=== PATIENT | female | born 1970 | race Caucasian/White ===

== ENCOUNTER 2024-03-13 18:22 | Outpatient (CLI) | payer MEDICARE, SELFPAY | END 2024-03-13 18:23 | disposition home or self-care (01) | LOC: AMB 03-25 02:15 | PROVIDERS: Visit Provider Family Medicine | DX: R45.851 Suicidal ideations (principal) | CPT/HCPCS: A0425; A0429 ==

== ENCOUNTER 2024-03-13 18:58 | Emergency (ER) | payer MEDICARE, SELFPAY ==
[2024-03-13] VITALS (10 sets, daily range): BP systolic 95–106; BP diastolic 63–76; PULSE 61–71; RESP 16; TEMP 36.4; O2SAT 96–100; BMI 21.3
--- NOTE | 2024-03-13 19:07 | ED.GENADULT ---
HPI - General Adult General Date Seen: 03/13/24 Chief complaint: Overdose Stated complaint: OD Time Seen by Provider: 03/13/24 19:06 History of Present Illness HPI narrative: 53-year-old female brought to the ER today by EMS for evaluation of slurred speech, altered mental status, after an intentional overdose of lorazepam and a suicide attempt. She is on a hold placed by EMS. History from paramedics is that she is 53. She has chronic depression. She had no reason to live today and so took 28 tablets of 1 mg lorazepam around 11:00 a.m.. She has not had anything to eat or drink since then and has not had any vomiting. Apparently her son called her and found her to be abnormal and her son called 911. EN route the patient had a low normal blood pressure in the 90s/50s. Normal pulse rate. Normal oxygen treated she was initially quite drowsy but is becoming more arousable as they were transporting her. They placed her on a hold. They attempted to start an IV in her left arm but were unsuccessful. History is limited from the patient because she has altered mental status, drowsiness, and slurred speech. She is able to tell me that she does have depression. She apparently has doctors either at [facility] in [facility] or at [place] to manage her depression. She also has a ?spinal cord transplant? which I think may actually mean a spine stimulator. She was apparently referred for ECT to treat her depression but could not have it because of her his spine. She says she just had nothing to live for. She is lonely even though she has a nice house in [place]. She took her lorazepam in an attempt to today. She denies any other coingestion. No previous medical records available in our system Records are available through [facility] and [facility] Past medical history includes Deviated septum, rectovaginal fistula, history of malignant melanoma of her face, osteoarthritis of her thumb, migraine headaches, abnormal Pap smear, Anxiety, PTSD, tobacco use, major depressive disorder Records indicate that she was admitted from 03/03-03/08 at [facility] She was admitted for major depressive disorder, generalized anxiety disorder. Per DC Summary 03/08 Mahogany has a history of depression and anxiety. She was admitted to [facility] a couple of weeks ago. She was later transferred to [facility] to start ECTs because of severe depression. Prior to her transfer, she was placed on [facility] by Dr. Sims. Patient could not receive the ECTs because of having spine stimulator. She found this to be contraindication. Patient was transferred back to [place] yesterday without having any ECTs at [facility]. She continues to endorse symptoms of depression as feeling sad, trouble enjoying things and motivating self, appetite changes, sleeping problems, feeling tired, and trouble concentrating/memory. Feeling hopeless/helpless/worthless/guilty. She also continues to have suicidal thoughts but without any intentions or plans. She reports some anxiety symptoms as well. She worries but denies any panic like symptoms. She denies any flashbacks, nightmares, hypervigilance, avoidance related to the past. She denies symptoms including decreased need for sleep with elevated mood and energy. Denies doing things impulsively or engaging in behaviors out of the norm such as gambling/ excessive shopping, having racing thoughts, feeling ?hyper?. She denies symptoms of auditory or visual hallucinations. Does not endorse bizarre/persistent thoughts/fears that are affecting daily life such as paranoia or delusions. ? BRIEF HOSPITAL COURSE: This 53 y.o. female admitted 03/03/2024 To [place] for the assessment and treatment of the above presentation. This was a voluntary admission. On admission, Amber stated in individual, group and milieu therapy. ? 1. Major depression, recurrent, severe, without psychosis: The patient was continued with tranylcypromine and the dosage was eventually increased to 20 mg twice daily. She noted that on the higher doses that her mood had improved. She was not experiencing any hypotension. The second dosage of the day was being given at bedtime and she was having some difficulty with sleep. For that reason the second dose was moved to late afternoon. She was able to manage anxiety with quetiapine 25 mg every 6 hours as needed for anxiety. In order to deal with her insomnia she was advised to use quetiapine 25 to 50 mg at bedtime in addition to 1 mg of lorazepam at bedtime for insomnia. ? On the day of discharge the patient had requested to be discharged. She stated that she was feeling better and that she was having thoughts but was not having feelings of hopelessness nor was she having suicidal ideation. With Mahogany springer this press writer contacted her son Zach, by phone. He stated that he noted that over the last several days she was sounding much better and was comfortable with her returning home. This press writer advised the patient to avoid isolation as much as possible and to make sure that she has a routine scheduled if possible. She stated that she is scheduled to begin DBT and also has an appointment to become reestablished with [facility]. ? In summary, the patient's psychiatric history is significant for recurrent major depression. Over the course of the hospitalization the following changes to medications were made: She was continued on tranylcypromine but the dosage was eventually increased to 20 mg twice daily. She was also using lorazepam 1 mg at bedtime as needed for insomnia and quetiapine 25 mg 3 times daily as needed and 25 to 50 mg at bedtime as needed for insomnia. The patient tolerated these changes without side effects. The patient benefited from the structured therapeutic milieu and attended programming. While in the hospital lab work showed a white count low at 4.1, albumin low at 3.9, total bilirubin 0.2 ALT less than 5, AST 11, hemoglobin 12.5 Drug screen positive for benzos, otherwise negative. Related Data Home Medications Medication Instructions Recorded Confirmed naltrexone 1.5 mg capsule 3 mg PO 03/13/24 (Lotrexone) quetiapine 25 mg tablet 25 mg PO DAILY 03/13/24 03/13/24 tranylcypromine 10 mg tablet 10 mg PO DAILY 03/13/24 03/13/24 tryptophan .ROUTE 03/13/24 Allergies Allergy/AdvReac Type Severity Reaction Status Date / Time No Known Drug Allergies Allergy Verified 03/13/24 19:17 Exam Narrative: Exam Narrative: Primary Survey: A- patent. Speaking slowly and speech is slurred. Phonation normal. No stridor. Protecting her airway B- breathing easily. Lung sounds clear and equal. Oxygen saturation normal on room air C- no active bleeding. Blood pressure measures low but may be inaccurate. Will recheck. Symmetric pulses and cap refill in 4 extremities. D- alert and oriented to person and place but not date. Slurred speech. GCS 15. No focal deficits. Constitutional: Appears well-developed and well-nourished. Drowsy and speech is slurred. Able to answer some questions. Somewhat disorganized historian, talking about having headache ?spine transplant? when she means that she has a spine stimulator HENT: Head: Atraumatic. No depressed skull fracture, Raccoon Eyes, Pepe's sign, or hemotympanum. Face normal. Nose: Nose normal. Mouth/Throat: Oral mucosa is clear and moist. no trismus. Pharynx normal. Tonsils symmetric. No tonsillar enlargement, erythema, or exudate. Eyes: Conjunctivae normal. EOM normal. Pupils equal, round, and reactive to light. No scleral icterus. Neck: Normal range of motion. Neck supple. No tracheal deviation present. Cardiovascular: Normal rate, regular rhythm. No gallop. No friction rub. No murmur heard. Symmetric radial artery pulses Pulmonary/Chest: Effort normal. No stridor. No respiratory distress. No wheezes. No rales. No rhonchi . No tenderness. Abdominal: Soft. Bowel sounds normal. No distension. No mass. No tenderness. No rebound. No guarding. Musculoskeletal: Palpable spine stimulator in her right flank. No overlying redness or rash. No bruising. RUE: Normal range of motion. No tenderness. No deformity LUE: Normal range of motion. No tenderness. No deformity RLE: Normal range of motion. No edema. No tenderness. No deformity LLE: Normal range of motion. No edema. No tenderness. No deformity Lymph: No cervical adenopathy. Neurological: Awake but drowsy. oriented to person, place, but not date. Normal strength. CN II-VII intact. No sensory deficit. GCS eye subscore is 4. GCS verbal subscore is 5. GCS motor subscore is 6. Somewhat slow moving, consistent with possible intoxication. Otherwise no focal deficits Skin: Skin is warm and dry. No rash noted. No pallor. Normal capillary refill. Psychiatric: Drowsy. Flat affect. Appears disheveled. Endorses that she has no reason to live. She did take a reported 28 mg of Ativan around 11:00 a.m. as a suicide attempt. Records indicate she was just hospitalized for depression at [facility]. Const: Vital Signs, click to edit/add: Vital Signs - 24 hr 03/13/24 19:17 Temperature 97.6 F Pulse Rate [Pulse Oximeter] 71 Respiratory Rate 16 Blood Pressure [Le ft Upper Arm] 95/67 Pulse Oximetry 97 Oxygen Delivery Me thod Room Air Course Course ED Course: Recheck-8:00 p.m.. Sitting up in bed. Able to be more conversant. Cooperative with exam. Lies back for heart and abdominal exam and rolls over onto her side for back exam. Still drowsy and slurred speech but overall seems more alert now than when she arrived. Vital Signs Vital signs: Initial Vital Signs Temperature 97.6 F 03/13/24 19:17 Temperature Source Temporal Artery Scan 03/13/24 19:17 Pulse Rate 71 03/13/24 19:17 Respiratory Rate 16 03/13/24 19:17 Blood Pressure 95/67 03/13/24 19:17 Blood Pressure Mean 76 03/13/24 19:17 Blood Pressure Position Sitting 03/13/24 19:17 Pulse Oximetry 97 03/13/24 19:17 Oxygen Delivery Method Room Air 03/13/24 19:17 Vital Signs Temperature 97.6 F 03/13/24 19:17 Pulse Rate 71 03/13/24 19:17 Respiratory Rate 16 03/13/24 19:17 Blood Pressure 95/67 03/13/24 19:17 Pulse Oximetry 97 03/13/24 19:17 Oxygen Delivery Method Room Air 03/13/24 19:17 Temperature 97.6 F 03/13/24 19:17 Pulse Rate 71 03/13/24 19:17 Respiratory Rate 16 03/13/24 19:17 Blood Pressure 95/67 03/13/24 19:17 Pulse Oximetry 97 03/13/24 19:17 Oxygen Delivery Method Room Air 03/13/24 19:17 Medical Decision Making MDM Narrative Medical decision making narrative: 53-year-old female with a history of depression, anxiety, chronic pain, spinal stimulator, presenting to the ER today by EMS from her home. She had an intentional overdose on lorazepam reported to be around 11:00 a.m. this morning. She denies any other coingestion. However further laboratory workup was undertaking because patient's reliability cannot be assured. She was endorsing that she had no reason to live and this clearly was an attempt at self harm/suicide. She was initially quite drowsy. She was not combative but she did not want to come with paramedics so she was placed on a transport hold. We did continue a 72 hour hold, initiated after she arrived here in the ER and I evaluated her. However at this time she is actually voluntary and willing to be here/willing to be hospitalized. She is cooperative but drowsy. Initial evaluation revealed drowsiness, slurred speech and signs of either alcohol or sedative intoxication. Head CT is negative for bleed. Blood glucose is normal. She is not febrile and no headache. White blood cell count is normal today at 6.9 and venous lactic acid is normal. No evidence for any meningitis or encephalitis based on initial presentation. Alcohol level is undetectable. Urine drug screen is positive for benzos and tricyclics. Otherwise negative. Acetaminophen and salicylate level are both undetectable. Initial blood pressure was measured low but I think this was probably an inaccurate reading because it was measured through her heavy sweatshirt. Subsequent readings have remained in the low normal range. We have administered 1 L of IV saline here in the ER. At this point she is not requiring vasopressors. EKG shows normal QRS morphology. No evidence for QRS widening sit to suggest TCA overdose, although drug screen is positive for TCAs. Med [place] [facility] [place] [facility] [place] Mental status was drowsy but she was alert and talking and protecting her airway. Discussed by phone with her son Zach. [phone]. He confirms that she has had a long stroke mental health and was just in the hospital and discharged last week. She has tried to commit suicide by overdose in the past. He has great concerns about her and wonders if she needs to be committed or in a long-term living facility. He agrees with the plan to have her evaluated by DEC and then admitted for inpatient mental health treatment. Patient signed out to my partner, Dr. Hart. He will monitor the patient's clinical course. Once she is clinically sober enough she will need assessment by DEC. I have placed her on a 72 hour hold tonight. I am anticipating that she will require an inpatient mental health admission because of her depression and suicide attempt. Lab Data Labs: Lab Results 03/13/24 03/13/24 03/13/24 Range/Units 19:13 19:13 19:13 WBC 6.92 (4.50-11.00) K/uL RBC 4.74 (4.00-5.20) m/uL Hgb 14.1 (12.0-16.0) gm/dL Hct 42.5 (33.0-51.0) % MCV 90 (80-100) fL MCH 30 (26-34) pg MCHC 33 (32-36) gm/dL RDW Coeff of Elisa 12.5 (11.5-15.5) % Plt Count 272 (140-440) K/uL Neut % (Auto) 43.3 (42.0-72.0) % Lymph % (Auto) 45.8 H (20-44) % Ellis % (Auto) 8.5 (0.0-11.0) % Eos % (Auto) 1.7 (0.0-7.0) % Baso % (Auto) 0.4 (0.0-3.0) % Neut # (Auto) 2.99 (1.7-7.0) K/uL Lymph # (Auto) 3.20 H (0.90-2.90) K/uL Ellis # (Auto) 0.60 (0.00-0.90) K/UL Eos # (Auto) 0.12 (0.00-0.50) K/uL Baso # (Auto) 0.03 (0.00-0.30) K/uL Abs Immat Gran (auto) 0.02 (0.00-0.30) K/uL Imm/Tot Granulo (auto) 0.3 % Sodium 138 (135-149) mmol/L Potassium 3.7 (3.6-5.1) mmol/L Chloride 105 (96-114) mmol/L Carbon Dioxide 26 (20-32) mmol/L Anion Gap 7 (7-15) mEq/L BUN 15 (7-30) mg/dL Creatinine 0.9 (0.5-1.5) mg/dL Estimated Creat Clear 58.42 Estimated GFR 76 ml/min Glucose 78 (60-115) mg/dL Lactate 0.9 (0.5-1.9) mmol/L Calcium 9.6 (8.4-10.6) mg/dL Magnesium 2.2 (1.5-2.6) mg/dL Total Bilirubin 0.6 (0.1-1.5) mg/dL AST 31 (12-35) U/L ALT 22 (4-35) U/L Alkaline Phosphatase 76 (40-150) U/L Total Protein 6.9 (6.0-8.3) g/dL Albumin 4.3 (3.3-5.0) g/dL Salicylates Cancelled < 1.0 L Urine Opiates Screen (Negative) Ur Oxycodone Screen (Negative) Urine Methadone Screen (Negative) Acetaminophen Cancelled < 10.0 L Ur Barbiturates Screen (Negative) U Tricyclic Antidepress (Negative) Ur Phencyclidine Scrn (Negative) Ur Amphetamines Screen (Negative) U Methamphetamines Scrn (Negative) U Benzodiazepines Scrn (Negative) Urine Cocaine Screen (Negative) U Marijuana (THC) Screen (Negative) Ur Drug Screen Comment Ethyl Alcohol < 0.01 L (0.01-0.03) % 03/13/24 Range/Units 19:49 WBC (4.50-11.00) K/uL RBC (4.00-5.20) m/uL Hgb (12.0-16.0) gm/dL Hct (33.0-51.0) % MCV (80-100) fL MCH (26-34) pg MCHC (32-36) gm/dL RDW Coeff of Elisa (11.5-15.5) % Plt Count (140-440) K/uL Neut % (Auto) (42.0-72.0) % Lymph % (Auto) (20-44) % Ellis % (Auto) (0.0-11.0) % Eos % (Auto) (0.0-7.0) % Baso % (Auto) (0.0-3.0) % Neut # (Auto) (1.7-7.0) K/uL Lymph # (Auto) (0.90-2.90) K/uL Ellis # (Auto) (0.00-0.90) K/UL Eos # (Auto) (0.00-0.50) K/uL Baso # (Auto) (0.00-0.30) K/uL Abs Immat Gran (auto) (0.00-0.30) K/uL Imm/Tot Granulo (auto) % Sodium (135-149) mmol/L Potassium (3.6-5.1) mmol/L Chloride (96-114) mmol/L Carbon Dioxide (20-32) mmol/L Anion Gap (7-15) mEq/L BUN (7-30) mg/dL Creatinine (0.5-1.5) mg/dL Estimated Creat Clear Estimated GFR ml/min Glucose (60-115) mg/dL Lactate (0.5-1.9) mmol/L Calcium (8.4-10.6) mg/dL Magnesium (1.5-2.6) mg/dL Total Bilirubin (0.1-1.5) mg/dL AST (12-35) U/L ALT (4-35) U/L Alkaline Phosphatase (40-150) U/L Total Protein (6.0-8.3) g/dL Albumin (3.3-5.0) g/dL Salicylates Urine Opiates Screen Negative (Negative) Ur Oxycodone Screen Negative (Negative) Urine Methadone Screen Negative (Negative) Acetaminophen Ur Barbiturates Screen Negative (Negative) U Tricyclic Antidepress POSITIVE A (Negative) Ur Phencyclidine Scrn Negative (Negative) Ur Amphetamines Screen Negative (Negative) U Methamphetamines Scrn Negative (Negative) U Benzodiazepines Scrn POSITIVE A (Negative) Urine Cocaine Screen Negative (Negative) U Marijuana (THC) Screen Negative (Negative) Ur Drug Screen Comment See Note Ethyl Alcohol (0.01-0.03) % Imaging Data CT scan - head: Attestation: I have reviewed the pertinent imaging results. Radiologist's impression: Impression: No acute intracranial process. ECG Data Attestation: I personally reviewed and interpreted this ECG as follows: Interpretation: Normal sinus rhythm Rate: 61 TX: 138. No delta waves. QRS axis: Normal axis. QRS with 76 milliseconds. No QRS widening ST segment/T wave: No ST segment elevation or depression. QTc: 428. Discharge Plan Discharge Clinical Impression: Drug overdose, Suicide attempt, Benzodiazepine overdose Prescriptions: No Action Lotrexone 1.5 mg capsule 3 mg PO tranylcypromine 10 mg tablet 10 mg PO DAILY quetiapine 25 mg tablet 25 mg PO DAILY tryptophan .ROUTE Follow Up/Referrals: Provider,Not a Local [Primary Care Provider] -
--- NOTE | 2024-03-13 19:10 | CT_ITS ---
Patient: ABDIRAHMAN ALVARENGA Facility:?[facility] Patient ID:?[id number] Site Patient ID:?[id number] Site :?[id number] Study:?CT-Head WITHOUT-03/13/2024 7:28:43 PM Ordering Physician:?DR. LEVI Final Report: Indication: Altered mental status. Technique: CT of the brain was performed without intravenous contrast. Comparison: None relevant available at this institution. Findings: No acute blurring of the chavez-white differentiation. There is no intracranial hemorrhage. The ventricles are proportionate to the cerebral sulci. The 4th ventricle is midline. Basal cisterns appear patent. No abnormal extra-axial fluid collection identified. There is no intracranial mass, mass effect or midline shift identified. No depressed calvarial fracture. Impression: No acute intracranial process. Please note that all CT scans at this facility use dose modulation, iterative reconstruction, and/or weight-based dosing when appropriate to reduce radiation dose to as low as reasonably achievable. Dictated by Edi Hua MD @ 03/13/2024 8:01:09 PM Signed by:?Edi Hua MD @03/13/2024 8:01:09 PM (Electronic Signature)
[2024-03-13 19:18] LABS: Lactate* 0.9 mmol/L (0.5-1.9)
[2024-03-13 19:20] LABS: Basophils Absolute Auto 0.03 K/uL (0.00-0.30); Basophils Percent Auto 0.4 % (0.0-3.0); Eosinophils Absolute Auto 0.12 K/uL (0.00-0.50); Eosinophils Percent Auto 1.7 % (0.0-7.0); Hematocrit 42.5 % (33.0-51.0); Hemoglobin* 14.1 gm/dL (12.0-16.0); Immature Granulocytes Abs Auto 0.02 K/uL (0.00-0.30); Immature Granulocytes Pct Auto 0.3 %; Lymphocytes Percent Auto 45.8 % (20-44); Mean Corpuscular HGB Conc 33 gm/dL (32-36); Mean Corpuscular Hemoglobin 30 pg (26-34); Mean Corpuscular Volume 90 fL (80-100); Monocytes Percent Auto 8.5 % (0.0-11.0); Neutrophils Absolute Auto 2.99 K/uL (1.7-7.0); Neutrophils Percent Auto 43.3 % (42.0-72.0); Platelet Count* 272 K/uL (140-440); RDW Coefficient of Variation % 12.5 % (11.5-15.5); Red Blood Count 4.74 m/uL (4.00-5.20); White Blood Count* 6.92 K/uL (4.50-11.00)
[2024-03-13 19:31] LABS: Slide Review Reflex No
[2024-03-13 19:41] LABS: Albumin* 4.3 g/dL (3.3-5.0); Chloride* 105 mmol/L (96-114)
[2024-03-13 19:42] LABS: Potassium* 3.7 mmol/L (3.6-5.1); Sodium* 138 mmol/L (135-149)
[2024-03-13 19:43] LABS: Creatinine* 0.9 mg/dL (0.5-1.5); Est. Creatinine Clearance* 58.42; Estimated Glomerular Filt Rate 76 ml/min
[2024-03-13 19:44] LABS: Alanine Aminotransferase* 22 U/L (4-35); Alkaline Phosphatase* 76 U/L (40-150); Anion Gap 7 mEq/L (7-15); Aspartate Amino Transferase* 31 U/L (12-35); Bilirubin Total* 0.6 mg/dL (0.1-1.5); Blood Urea Nitrogen* 15 mg/dL (7-30); Calcium* 9.6 mg/dL (8.4-10.6); Carbon Dioxide* 26 mmol/L (20-32); Glucose* 78 mg/dL (60-115); Total Protein* 6.9 g/dL (6.0-8.3)
[2024-03-13 19:45] LABS: Magnesium* 2.2 mg/dL (1.5-2.6)
[2024-03-13 19:50] LABS: Acetaminophen* < 10.0 ug/mL (10.0-30.0); Ethanol* < 0.01 % (0.01-0.03); Salicylate* < 1.0 mg/dL (1.0-10)
[2024-03-13 20:04] LABS: Amphetamine Screen Urine Negative (Negative); Barbiturate Screen Urine Negative (Negative); Benzodiazepines Screen Urine POSITIVE (Negative); Cannabinoid Screen Urine Negative (Negative); Cocaine Screen Urine Negative (Negative); Methadone Screen Urine Negative (Negative); Methamphetamines Screen Urine Negative (Negative); Opiate Screen Urine Negative (Negative); Oxycodone Screen Urine Negative (Negative); Phencyclidine Screen Urine Negative (Negative); Tricyclic Antidepressant Urine POSITIVE (Negative)
[2024-03-14 03:25] LABS: Ur HCG Qualitative* Negative (Negative)
[2024-03-14 09:05] VITALS: BP 90/66; PULSE 80; RESP 18; O2SAT 98
--- NOTE | 2024-03-14 09:43 | ED.NURSE ---
pt's depression medication is unavailable at the hospital. son was called and he is willing to bring it in
[2024-03-14 10:00] LABS: PCR FLU A Negative PCR FLU A (Negative); PCR FLU B Negative PCR FLU B (Negative); PCR RSV Negative PCR RSV (Negative); SARS PCR* Negative SARS-CoV-2 (Negative)
[2024-03-14] MEDS: TRANYLCYPROMINE 10 MG 20 EACH PO (11:00)
--- NOTE | 2024-03-14 11:15 | ED.NURSE ---
Zach banda here. updated of plan for transfer to [facility]
[2024-03-14] MEDS: NICOTINE 2 MG LOZENGE 4 MG BUCCAL (12:34)
--- NOTE | 2024-03-14 12:42 | ED.NURSE ---
son informed of transfer
== END 2024-03-14 12:42 ==
PROVIDERS: Emergency Medicine; Family Medicine; Emergency Provider Emergency Medicine Emergency Medical Services
DX: T42.4X2A Poisoning by benzodiazepines, intentional self-harm, initial encounter (principal)
CPT/HCPCS: 36415; 70450; 80053; 80143; 80179; 80306; 81025; 82077; 83605; 83735; 85025; 87631; 93005; 99284; 99285

== ENCOUNTER 2024-03-14 12:21 | Outpatient (CLI) | payer MEDICARE, SELFPAY | END 2024-03-14 12:22 | disposition home or self-care (01) | LOC: AMB 03-20 06:42 | PROVIDERS: Visit Provider Emergency Medicine Emergency Medical Services | DX: R45.851 Suicidal ideations (principal) | CPT/HCPCS: A0425; A0428 ==

== ENCOUNTER 2024-04-01 18:48 | Outpatient (CLI) | payer MEDICARE, SELFPAY | END 2024-04-01 18:49 | disposition home or self-care (01) | LOC: AMB 04-03 17:03 | PROVIDERS: Visit Provider Student in an Organized Health Care Education/Training Program | DX: T43.592A Poisoning by other antipsychotics and neuroleptics, intentional self-harm, initial encounter (principal); T42.4X2A Poisoning by benzodiazepines, intentional self-harm, initial encounter; Y92.009 Unspecified place in unspecified non-institutional (private) residence as the place of occurrence of the external cause | CPT/HCPCS: A0425; A0433 ==